=== PATIENT | female | born 1965 | race Caucasian/White ===

== ENCOUNTER 2019-11-29 04:30 | Inpatient (IN) ==
[2019-11-25 13:47] LABS: Basophils # (Auto) 0.06 K/mcL (0.00-0.30); Basophils % (Auto) 1.2 % (0.0-2.0); Eosinophils # (Auto) 0.22 K/mcL (0.00-0.70); Eosinophils % (Auto) 4.4 % (0.0-7.0); Granulocytes % (Auto) 53.7 % (38.0-78.0); Hematocrit 40.3 % (34.1-44.9); Hemoglobin 13.8 g/dL (11.2-15.7); Lymphocytes # (Auto) 1.55 K/mcL (1.50-4.80); Lymphocytes % (Auto) 30.8 % (15.5-49.0); Mean Corpuscular HGB Conc 34.2 g/dL (31.0-36.0); Mean Platelet Volume 9.3 fL (7.4-10.4); Monocytes % (Auto) 9.9 % (1.0-12.0); Platelet Count 291 K/mcL (140-440); RBC 4.63 M/mcL (3.59-5.38); Red Cell Distribution Width 12.4 % (11.5-14.5)
[2019-11-25 13:59] LABS: Appearance,Urine CLEAR; Bilirubin,Urine NEG (NEG); Color,Urine STRAW; Culture Indicated,Urine NO; Glucose,Urine (UA) NEGATIVE (NEG); Ketones,Urine NEG (NEG); Leukocyte Esterase,Urine NEG /uL (NEG); Nitrate,Urine NEG (NEG); Protein,Urine NEG (NEG); Specific Gravity,Urine 1.008 (1.000-1.035); Urine Blood NEG mg/dL (<0.03); Urobilinogen,Urine NEG (NEG)
[2019-11-25 14:18] LABS: Blood Urea Nitrogen 9 mg/dl (6-20); Calcium 9.5 mg/dl (8.6-10.4); Carbon Dioxide 25 mmol/L (22-30); Chloride 98 mmol/L (96-108); Glomerular Filtration Rate 71; Glucose 255 mg/dL (70-105)
[2019-11-25 14:26] LABS: Hemoglobin A1C 6.9 % HGB (4.0-6.0)
[2019-11-25 14:34] LABS: Prothrombin Time 13.2 sec (11.9-14.5)
[2019-11-29] MEDS ORDERED: IPRATROPIUM/ALBUTEROL 3 ML AMPUL.NEB NEB PRN ×2 (05:00→09:19)
[2019-11-29] MEDS ORDERED: SCOPOLAMINE 1 PATCH PATCH TOPICAL PRN (05:00)
[2019-11-29] MEDS ORDERED: ACETAMINOPHEN 500 MG TABLET PO SCH (06:00)
[2019-11-29] MEDS ORDERED: PREGABALIN 75 MG CAPSULE PO SCH (06:00)
[2019-11-29] MEDS ORDERED: CELECOXIB 200 MG CAPSULE PO SCH (06:00)
[2019-11-29] MEDS ORDERED: ceFAZolin 2 GM in DEXTROSE 5% IN WATER 50 ML IV SCH (06:00)
[2019-11-29] MEDS ORDERED: oxyCODONE 10 MG TAB.ER.12H PO SCH (06:00)
[2019-11-29] MEDS ORDERED: GENTAMICIN SULFATE 800 MG/20 ML VIAL IR ONE (06:53)
[2019-11-29] MEDS ORDERED: PHENYLEPHRINE 10 MG/ML VIAL IV ONE (07:30)
[2019-11-29] MEDS ORDERED: PROPOFOL 200 MG/20 ML VIAL IV ONE (07:30)
[2019-11-29] MEDS ORDERED: ROPIVACAINE HCL/PF 30 ML VIAL IJ ONE (07:30)
[2019-11-29] MEDS ORDERED: SUCCINYLCHOLINE 20 MG/ML ML IV ONE (07:30)
[2019-11-29] MEDS ORDERED: KETAMINE 100 MG/ML ML IV ONE (07:30)
[2019-11-29] MEDS ORDERED: ePHEDrine 50 MG/ML AMPUL IV ONE (07:30)
[2019-11-29] MEDS ORDERED: TRANEXAMIC ACID 1,000 MG/10 ML VIAL IV ONE (07:30)
[2019-11-29] MEDS ORDERED: GLYCOPYRROLATE 0.2 MG/ML VIAL IV ONE (07:30)
[2019-11-29] MEDS ORDERED: DEXAMETHASONE 4 MG/ML VIAL IV ONE (07:30)
[2019-11-29] MEDS ORDERED: LIDOCAINE HCL/PF 100 MG/5 ML SYRINGE IV ONE (07:30)
[2019-11-29] MEDS ORDERED: fentaNYL 250 MCG/5 ML VIAL IV ONE (07:30)
[2019-11-29] MEDS ORDERED: HYDROcodone/APAP 10/325MG TABLET PO PRN (08:59)
[2019-11-29] MEDS ORDERED: traMADol 50 MG TABLET PO PRN (08:59)
[2019-11-29] MEDS ORDERED: PROCHLORPERAZINE 10 MG TABLET PO PRN (08:59)
[2019-11-29] MEDS ORDERED: ONDANSETRON 4 MG ODT TABLET SL PRN (08:59)
[2019-11-29] MEDS ORDERED: ALBUTEROL SULFATE 1 PUFF INHALER INH PRN (08:59)
--- NOTE | 2019-11-29 08:59 | Brief Operative Note ---
Date of procedure: 11/29/19 Pre-op diagnosis: Left shoulder rca and bicep tendon tear Post-op diagnosis: same Procedure: Left shoulder reverse tsa and bicep tenodesis Grafts/Implants: Yes Anesthesia: KARISSAA Surgeon: Giorgi Malone [employer] Jack Dealer: Byron Sullivan Estimated blood loss (cc): 100 Specimens Removed/Pathology: none sent Condition: stable Disposition: PACU
[2019-11-29] MEDS ORDERED: HYDROmorphone 2 MG/ML VIAL IV PRN ×2 (09:10→09:12)
[2019-11-29] MEDS ORDERED: POLYETHYLENE GLYCOL 3350 17 GM PACKET PO PRN (09:12)
[2019-11-29] MEDS ORDERED: BENZOCAINE/MENTHOL 1 LOZENGE PO PRN ×2 (09:12→09:19)
[2019-11-29] MEDS ORDERED: ACETAMINOPHEN 325 MG TABLET PO PRN (09:12)
[2019-11-29] MEDS ORDERED: FLEETS ADULT ENEMA PR PRN (09:12)
[2019-11-29] MEDS ORDERED: KETOROLAC 15 MG/ML VIAL IV PRN (09:12)
[2019-11-29] MEDS ORDERED: BISACODYL 10 MG SUPP.RECT PR PRN (09:12)
[2019-11-29] MEDS ORDERED: MAGNESIUM HYDROXIDE 30 ML ORAL.SUSP PO PRN (09:12)
[2019-11-29] MEDS ORDERED: TRANEXAMIC ACID 1,000 MG/10 ML VIAL IV SCH (09:12)
[2019-11-29] MEDS ORDERED: ONDANSETRON 4 MG/2 ML VIAL IV PRN ×2 (09:12→09:19)
--- NOTE | 2019-11-29 09:18 | Discharge Summary ---
Ortho Discharge - TSA - Patient Instructions Diet: Regular Diet Activity: activity as tolerated, weight bearing as tolerated Total Shoulder Protocol: Leave immobilizer in place except for bathing and ROM. Abduction pillow. Continue to wear sling until seen by physician. Codman Pendulum : These exercises use momentum produced by your body to move your shoulder joint. Bend your knees and shift your weight to your front leg, then back, allowing your arm to swing in the same directions. Using the same technique, alternately shift your weight between your right and left legs, allowing your arm to swing from side to side. These exercises are also performed in counterclockwise and clockwise circular motions. Typically these exercises are performed several times per day, for a set number repetitions or minutes, such as 20 times in a row or 5 minutes at a time. Dressing Care: May shower in 2 days - Follow Up Plan Follow Up Appointments: Byron Sullivan PA-C [Physician Label Paster] - 12/16/19 1:00 pm Disposition: Home, Self-Care Prognosis: Good Rehab Potential: Good I certify that the patient requires SNF services: No Overall status at discharge: patient is progressing back to baseline - Orders For Discharge Prescriptions: Docusate Sodium [Colace] 100 mg PO BID #60 oral.sobia Transmission Status: Pending to [facility] HYDROcodone/APAP 10/325MG [[place] 10-325Mg] 1 - 2 tab PO Q4HP PRN #75 tab PRN Reason: Pain Prescription Printed
[2019-11-29] MEDS ORDERED: LABETALOL 5 MG/ML ML IV PRN (09:19)
[2019-11-29] MEDS ORDERED: fentaNYL 100 MCG/2 ML VIAL IV PRN (09:19)
[2019-11-29] MEDS ORDERED: METOPROLOL TARTRATE 5 MG/5 ML VIAL IV PRN (09:19)
[2019-11-29] MEDS ORDERED: LACTATED RINGERS 250 ML IV PRN (09:19)
[2019-11-29] MEDS ORDERED: ACETAMINOPHEN 1,000 MG/100 ML BOTTLE IV ONE (09:19)
[2019-11-29] MEDS ORDERED: METHOCARBAMOL 1,000 MG/10 ML VIAL IV PRN (09:19)
[2019-11-29] MEDS ORDERED: FLUMAZENIL 0.1 MG/ML ML IV PRN (09:19)
[2019-11-29] MEDS ORDERED: NALOXONE HCL 0.4 MG/ML VIAL IV PRN (09:19)
--- NOTE | 2019-11-29 09:19 | Operative Note ---
DATE OF OPERATION: 11/29/2019 PREOPERATIVE DIAGNOSES: A 54-year-old with a left shoulder rotator cuff arthropathy and biceps tendon tear. POSTOPERATIVE DIAGNOSES: A 54-year-old with a left shoulder rotator cuff arthropathy and biceps tendon tear. PROCEDURE: Left reverse total shoulder with biceps tenodesis and lysis. SURGEON: Giorgi Malone M.D. SOURCING COORDINATOR: Byron Sullivan PA-C. The PA's assistance was required for the safe and efficient completion of the entire case. This provider's expertise and technical skill were required throughout the case. The PA assisted with preoperative coordination, intraoperative retraction, wound closure, dressing and splint application, as well as postoperative documentation and care coordination. BLOOD LOSS: About 100 mL. COMPLICATIONS: None. IMPLANTS PLACED: A size 7 cementless stem with a small amount of cement distally. A standard-thickness poly and a 36 mm glenosphere with 2 mm of offset, 2 mm eccentricity. Metaglene with four screws. A central screw measuring 32 mm, two 36 mm, and one 32 mm screw. Also note preop antibiotics were given and tranexamic acid before the incision. DESCRIPTION OF PROCEDURE: After being sterilely prepped and draped, patient was sat in a beach chair position. A timeout was performed confirming the operative site by initials, consent form, and x-rays. Preop antibiotics and tranexamic acid confirmed given. Once done, we placed Ioban over the skin and made a deltopectoral approach to the shoulder. We identified the shoulder and released the subscap anteriorly, subluxed the humeral head anteriorly, and made our neck cut at the surgical neck region. Once done, we then subluxed the head posteriorly and then performed a 360-degree capsular release around the glenoid, as well as releasing the remnants of the biceps tendon. We then reamed up to the size 36. We placed the metaglene and a glenosphere. The metaglene was a standard metaglene with a 32 mm central hole and then 36, 36 and 32 mm screws. A 36 mm eccentric and 2 mm of offset glenosphere was tapped into place. We then reamed up to the size of 8 on the humeral stem. We broached to a size 8, trialed the size 8. It fit very nicely. We then irrigated thoroughly and placed a small amount of cement distally to secure the stem given her poor bone quality, and then we placed a standard-thickness poly. The patient tolerated this well. There were no complications. The shoulder was reduced. It was very stable and took it through the range of motion. We did place two stitches into the cephalic vein because it was bleeding. We irrigated thoroughly. Blood loss was about 100 mL. We closed the skin with 2-0 Vicryl and adhesive closure. The patient tolerated this well. Sterile bandage applied. Donjoy sling was fitted and given to the patient. DAMION:amy Job ID: [id number] Doc ID: [id number] Giorgi Malone MD
[2019-11-29] MEDS ORDERED: LACTATED RINGERS 1,000 ML IV SCH (09:30)
[2019-11-29] MEDS ORDERED: SUMAtriptan SUCCINATE 6 MG/0.5 ML VIAL SQ PRN (09:30)
--- NOTE | 2019-11-29 09:43 | XRay Report ---
CLINICAL INFORMATION: Postoperative follow-up TECHNIQUE: AP and Y-view of the left shoulder COMPARISON: None. FINDINGS: Status post left reverse shoulder arthroplasty. Prosthetic components are in anatomic positions. There has been previous resection of the distal left clavicle consistent with Norris procedure IMPRESSION: Postoperative left shoulder as above Interpreted and Authenticated by: Carl Justin 11/29/19
[2019-11-29] MEDS: LACTATED RINGERS 1,000 ML IV SCH ×3 (10:00→20:42)
[2019-11-29] MEDS: PREGABALIN 150 MG CAPSULE PO SCH ×2 (12:41→20:43)
[2019-11-29] MEDS: HYDROCHLOROTHIAZIDE 25 MG TABLET PO SCH (12:41)
[2019-11-29] MEDS: PARoxetine 20 MG TABLET PO SCH (12:41)
[2019-11-29] MEDS: CARBIDOPA/LEVODOPA 25/100 TABLET PO SCH ×2 (12:41→20:43)
[2019-11-29] MEDS: FLUTICASONE HFA 44MCG INHALER INH SCH ×2 (12:42→20:43)
[2019-11-29] MEDS: LISINOPRIL 20 MG TABLET PO SCH (12:42)
[2019-11-29] MEDS: HYDROcodone/APAP 10/325MG TABLET PO PRN ×3 (12:43→22:42)
[2019-11-29] MEDS: 0.9 % SODIUM CHLORIDE 10 ML SYRINGE IV SCH ×3 (17:42→22:37)
[2019-11-29] MEDS: ceFAZolin 1 GM VIAL IV SCH ×2 (17:50→22:33)
[2019-11-29] MEDS: POTASSIUM CHLORIDE 10 MEQ TABLET PO SCH (17:50)
[2019-11-29] MEDS ORDERED: diphenhydrAMINE 25 MG CAPSULE PO PRN (18:47)
[2019-11-29] MEDS ORDERED: HYDROCORTISONE CRM 2.5% TUBE 30GM TOPICAL PRN (18:49)
[2019-11-29] MEDS: DILTIAZEM 30 MG TABLET PO SCH (20:42)
[2019-11-29] MEDS: DOCUSATE SODIUM 100 MG CAPSULE PO SCH (20:43)
[2019-11-29] MEDS ORDERED: TEMAZEPAM 15 MG CAPSULE PO PRN (21:00)
[2019-11-29] MEDS ORDERED: SENNOSIDES 1 TABLET PO SCH (21:00)
[2019-11-29] MEDS ORDERED: traZODone HCL 150 MG TABLET PO SCH (21:00)
[2019-11-30] MEDS: CYCLOBENZAPRINE 10 MG TABLET PO PRN ×2 (02:22→07:54)
[2019-11-30] MEDS: HYDROcodone/APAP 10/325MG TABLET PO PRN ×2 (03:56→08:17)
[2019-11-30] MEDS: 0.9 % SODIUM CHLORIDE 10 ML SYRINGE IV SCH ×2 (03:56→06:09)
[2019-11-30] MEDS: LACTATED RINGERS 1,000 ML IV SCH (03:57)
[2019-11-30] MEDS ORDERED: OMEPRAZOLE 20 MG CAPSULE PO SCH (07:30)
[2019-11-30] MEDS: PARoxetine 20 MG TABLET PO SCH (07:52)
[2019-11-30] MEDS: LISINOPRIL 20 MG TABLET PO SCH (07:53)
[2019-11-30] MEDS: POTASSIUM CHLORIDE 10 MEQ TABLET PO SCH (07:53)
[2019-11-30] MEDS: HYDROCHLOROTHIAZIDE 25 MG TABLET PO SCH (07:53)
[2019-11-30] MEDS: CARBIDOPA/LEVODOPA 25/100 TABLET PO SCH (07:53)
[2019-11-30] MEDS: DILTIAZEM 30 MG TABLET PO SCH (07:53)
[2019-11-30] MEDS: PREGABALIN 150 MG CAPSULE PO SCH (07:53)
[2019-11-30] MEDS: FLUTICASONE HFA 44MCG INHALER INH SCH (07:54)
[2019-11-30] MEDS: DOCUSATE SODIUM 100 MG CAPSULE PO SCH (07:54)
[2019-11-30] MEDS: FAMOTIDINE/PF 20 MG/2 ML VIAL IV ONE ×2 (07:54→08:06)
[2019-11-30] MEDS ORDERED: FAMOTIDINE 20 MG TABLET PO ONE (08:03)
[2019-11-30] MEDS ORDERED: Solifenacin Succinate [Vesicare] 10 MG Tablet PO SCH (09:00)
[2019-11-30] MEDS ORDERED: TERBINAFINE CRM 1% TUBE 15GM TOPICAL SCH (09:00)
[2019-11-30] MEDS ORDERED: NYSTATIN CRM 1 DOSE TUBE TOPICAL PRN (09:48)
[2019-11-30] MEDS ORDERED: FLU VACC QS2019-20(6MOS UP)/PF 60 MCG/0.5 ML SYRINGE IM ONE (10:00)
[2019-12-03] MEDS ORDERED: ALENDRONATE SODIUM 70 MG TABLET PO SCH (07:30)
== END 2019-11-30 11:35 | disposition home or self-care (01) | DRG 483 ==
LOC: MEDSUR 04:30
PROVIDERS: ADMIT Orthopaedic Surgery; ATTEND Orthopaedic Surgery